=== PATIENT | male | born 1990 | race Caucasian/White ===

== ENCOUNTER 2017-02-17 09:34 | Inpatient (IN) | payer OTHER ==
[~2017-02-17] VITALS: Ht 160 cm; Wt 59.9 kg
--- NOTE | 2017-02-17 09:54 | NUR ---
TONI FROM [facility] IN [place], VERY ANXIOUS, SOBBING. + SI, NO SPECIFIC PLAN, STATES HIS GRANDMOTHER PAID FOR HIM TO TO LIVE AT THE [facility] IN [place] WHICH WAS ARRANGED BY [facility] (CALVIN ORELLANA COUNSELOR). STATES "I FELT SCARED THAT I WOULDNT HAVE ANY MONEY TO EAT". STATES HE HASNT EATEN IN 4 DAYS. REPORTS HE TRIED TO "STRANGLE" SELF IN THE PAST WITH HIS HANDS. DENIES HI OR DRUG USE, ON UNKNOWN MEDICATION FOR DEPRESSION.
--- NOTE | 2017-02-17 09:58 | ED PSYCHIATRIC COMPLAINT ---
History of Present Illness General Chief Complaint: Psychiatric Related Complaint Stated Complaint: BIBA +SI Source: patient, old records, EMS Exam Limitations: no limitations Vital Signs & Intake/Output Vital Signs & Intake/Output Vital Signs Date Time Temp Pulse Resp B/P B/P Pulse O2 O2 Flow FiO2 Mean Ox Delivery Rate 02/18 1009 97.0 76 18 112/68 99 Room Air 02/18 0803 97.2 70 18 109/65 98 Room Air 02/18 0601 96.8 66 18 128/56 98 Room Air 02/17 2235 96.7 66 18 110/59 97 02/17 2033 97.2 64 16 120/62 97 Room Air 02/17 1502 96.5 78 18 111/57 98 Room Air 02/17 1236 96.6 65 18 113/56 99 Room Air ED Intake and Output 02/18 0000 02/17 1200 Intake Total Output Total Balance Patient 145 lb Weight Weight Reported by Patient Measurement Method Allergies Coded Allergies: No Known Drug Allergies (Intermediate, NONE 02/17/17) Reconcile Medications Risperidone 1 MG TABLET 2 TAB PO QPM MENTAL HEALTH (Reported) Triage Note: TONI FROM [facility], VERY ANXIOUS, SOBBING. + SI, NO SPECIFIC PLAN, STATES HIS GRANDMOTHER PAIN FOR HIM TO GET A ROOM AT THE [facility] IN [place], ARRANGED BY [facility] (CALVIN ORELLANA COUNSELOR). STATES "I FELT SCARED THAT I WOULDNT HAVE ANY MONEY TO EAT". STATES HE HASNT EATEN IN 4 DAYS. REPORTS HE TRIED TO "STRANGLE" SELF IN THE PAST WITH HIS HANDS. DENIES HI OR DRUG USE. ON UNKNOWN MEDICATION. Triage Nurses Notes Reviewed? yes Onset: Gradual Duration: week(s):, constant Timing: recent history Severity: moderate, severe Severity Numbers: 10 Associated Symptoms: anxiety, suicidal ideation HPI: 26-year-old male presents to ER for evaluation brought in by ambulance complaining of progressively worsening anxiety and suicidal ideation. The patient states that he has been living with his aunt in [place] whom he does not get along with which is adding increased stress he reports a racing thoughts and difficulty sleeping he is supposed to move into the [facility] on Tuesday. He states that he's been having progressively more frequent thoughts of wanting to harm himself by choking himself. He smokes marijuana and tobacco he denies tobacco or other drug use. No modifying factors or associated symptoms otherwise he is been compliant with taking his Risperdal, he is followed by [facility] (ROSEMARIE CORMIER) Past History Travel History Traveled to [place] past 21 day No Medical History Any Pertinent Medical History? see below for history Psychiatric: bipolar disease Surgical History Surgical History: non-contributory Psychosocial History What is your primary language Maltese Tobacco Use: Current Daily Use Daily Tobacco Use Amount/Type: => 5 Cigarettes daily ETOH Use: denies use Family History Hx Contributory? No (ROSEMARIE CORMIER) Review of Systems Review of Systems Constitutional: Reports: see HPI. Comments Review of systems: See HPI, All other systems negative. 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 moist mucous membranes. Neck: Supple, normal range of motion Back: Nontender, no CVA tenderness. Full range of motion Cardiovascular: Regular rate and rhythms no murmurs rubs Respiratory: No respiratory distress. Patient speaking in full complete sentences. Breath sounds clear to auscultation bilaterally: NO W/R/R Abdomen: Soft, nontender nondistended Extremity: No edema, full range of motion of extremities, Neuro: Alert oriented x3, motor sensory normal There were no obvious focal neurologic abnormalities. Skin: No appreciable rash on exposed skin, skin is warm and dry. Psych: Tearful depressed anxious, memory and judgment is normal. SAD PERSONS SAD PERSONS Response Value Male Sex? yes 1 Depression/Hopelessness? yes 2 Previous Attempts/Psych Care yes 1 Rational Thinking Loss? yes 2 Single//? yes 1 Organized/Serious Attempt yes 2 Social Support? has no support 1 Stated Future Intent? yes 2 Total 12 SAD PERSONS Done? yes (ROSEMARIE CORMIER) Progress Differential Diagnosis: drug intoxication, drug overdose, drug withdrawal, electrolyte abnormality, DEPRESSION, BIPOLAR, ANXIETY Plan of Care: Orders Procedure Date/time Status Regular Diet 02/18 D Active Patient Data - inpatient psych 02/18 1129 Active Admit to inpatient psych 02/18 1129 Active Vital Signs 02/18 UNK Active Nursing Misc 02/18 UNK Active Alternative Nursing Therapy 02/18 UNK Active Activity/Ambulation 02/18 UNK Active Current Medications Sig/Rosey Start time Last Medication Dose Stop Time Status Admin Risperidone 0.5 MG BID 02/17 1508 UNVr 02/18 (Risperidone) 1026 LABS ORDERED, PT RESTING IN NAD AT [facility], CRISIS CONSULT ORDERED Case d/w sr solutions consultant herman pt will be ER hold for bedsearch (ROSEMARIE CORMIER) Hand-Off Endorsed To: AQUILES SPRAGUE MD Endorsed Time: 1800 Pending: consult (CRISIS BED PLACEMENT) (ROSEMARIE CORMIER) Comments: 02/17/2017 6:30:57 PM patient signed out to me by PA. Awaiting crisis evaluation. (AQUILES SPRAGUE MD) Hand-Off Endorsed To: AQUILES MCFARLAND DO Endorsed Time: 0700 Pending: other (bed search) (MAXIMO BLAIR MD) Departure Departure Disposition: STILL A PATIENT Condition: Stable Departure Forms: Customer Survey General Discharge Information (ROSEMARIE CORMIER) Departure Clinical Impression Primary Impression: Depression with suicidal ideation Secondary Impressions: Anxiety, Marijuana use (MAXIMO BLAIR MD) Departure Comments 02/18/17 11:50 PM The patient was signed out to me by Dr. Blair. He is currently on a bed search by crisis (AQUILES MCFARLAND DO) Secondary Impressions: Anxiety, Marijuana use (MAXIMO BLAIR MD)
--- NOTE | 2017-02-17 10:24 | ED PSY CRISIS COLLATERAL NOTE ---
Collateral Note Collateral Note Family/Inform/Catherine Contacts: care: Pt requested to go to the hospital voluntarily as he feels unsafe. Pt started tx with [facility] October 2016. Per Silvana and Summer, pt initially reported homelessness but dad confirmed he actually lives with an aunt in [place]. Pt presents as angry, labile mood, crying and "praying a lot" which is not his baseline. Per care , dad feels his medications are not right. Silvana reports hx of taking risperdal and will fax over medication list.
[2017-02-17 10:36] LABS: ABSOLUTE BASOPHIL COUNT 0 /CUMM (0.0-0.2); ABSOLUTE EOSINOPHIL COUNT 0 /CUMM (0.0-0.7); ABSOLUTE GRANULOCYTE CT 4.5 /CUMM (1.4-6.5); ABSOLUTE MONOCYTE COUNT 0.4 /CUMM (0.10-0.60); BASOPHIL % 0.5 % (0.0-2.0); EOSINOPHIL % 0.8 % (0-5); GRANULOCYTE % 75.4 % (42.2-75.2); HEMATOCRIT 45.9 % (42-52); MEAN CORPUSCULAR HGB 30.3 PG (27.0-31.0); MEAN CORPUSCULAR HGB CONC 34.6 G/DL (33.0-37.0); MEAN CORPUSCULAR VOLUME 87.5 FL (80.0-94.0); MEAN PLATELET VOLUME 9.2 FL (7.4-10.4); PLATELET COUNT 196 /CUMM (130-400); RBC DISTRIBUTION WIDTH 12.6 % (11.5-14.5); RED BLOOD CELL CT 5.25 /CUMM (4.70-6.10)
[2017-02-17] MEDS ORDERED: RISPERIDONE1 M1 PO (10:39)
--- NOTE | 2017-02-17 11:03 | NUR ---
(1) one belongings bag locked in closet and (1) one valuables bag given to Pod 2 RN
--- NOTE | 2017-02-17 11:10 | NUR ---
LUNCH TRAY ORDERED FOR PT
--- NOTE | 2017-02-17 11:34 | NUR ---
PT RESTING ON STRETCHER, TEARFUL, FAMILY AT BEDSIDE. PITCHER OF WATER PROVIDED. SITTER IN PLACE.
--- NOTE | 2017-02-17 14:03 | NUR ---
Crisis evaluation completed.
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
--- NOTE | 2017-02-17 15:59 | NUR ---
PT MEDICATED WITH RISPERIDONE PER EMAR. OFFERING NO COMPLAINTS OR NEEDS. SITTER AT DOORWAY.
--- NOTE | 2017-02-17 18:34 | NUR ---
Faxed referral to Jessica Montero.
--- NOTE | 2017-02-17 18:37 | NUR ---
CRISIS AT BEDSIDE TO DISCUSS POC WITH FAMILY. SITTER AT DOORWAY.
--- NOTE | 2017-02-17 18:43 | ED PSY CRISIS COLLATERAL NOTE ---
Collateral Note Collateral Note Family/Inform/Catherine Contacts: Phone contact with Heidy Keyes aunt , pt lived with the aunt in [place] until a couple of weeks ago. Heidy reporrts he stopped taking his medications last month, January because [facility] added Tenex. Pt said to her that the medicatiions were not working for him. She also said he smokes marijuana often like he's smoking cigarettes, almost every 20 minutes. She reports he has a learning disability and only has a 7th grade education. Recently, she finds his behaviors to be more aggressive, angry and irritable. She states pt was seen by a Neurologist and was diagnosed with a TBI. His father fought with SSI to get him benefit because of his disability (TBI). She said the pt never made an attempt. But she finds that he often says things to get people's attention.
--- NOTE | 2017-02-17 20:29 | NUR ---
THIS RN TO PT'S ROOM TO MEDICATE PT WITH RISPERIDONE PER EMAR. THIS RN APPROACHES ROOM PT'S FATHER STATES "NO, I DO NOT WANT HIM RECEIVING ANY MEDICATION. I SPOKE WITH LUCY FROM CRISIS AND TOLD HER HE WAS NEVER DIAGNOSED WITH ANYTHING AND I DO NOT WANT HIM GETTING THESE MEDICATIONS." PT THEN STATES THAT HE WANTS TO REFUSE MEDICATION.
--- NOTE | 2017-02-18 00:22 | NUR ---
PT NOTED TO BE SLEEPING ON BED. NORMAL RR NOTED. SITTER IN PLACE. WILL CONTINUE TO MONITOR.
--- NOTE | 2017-02-18 04:24 | NUR ---
PT CONTINUES TO SLEEP ON STRETCHER. SNORING NOTED. SITTER IN PLACE. WILL CONTINUE TO MONITOR.
--- NOTE | 2017-02-18 05:56 | NUR ---
PT AWAKE ON BED. PT DENIES ANY COMPLAINTS. SITTERS REMAIN IN PLACE.
--- NOTE | 2017-02-18 07:08 | NUR ---
REPORT GIVEN TO CARIN CONNELLY.
--- NOTE | 2017-02-18 07:27 | NUR ---
ASSUMED CARE OF PT, UPON ASSESSMENT PT CRYING AND TEARFUL STATING "I MISS MY DAD" PT REQUESTING TO USE PHONE TO CALL FATHER, SITTER AT PT'S SIDE, PT ALLOWED TO USE PHONE TO CALL FATHER.
--- NOTE | 2017-02-18 10:12 | NUR ---
PHARMACY CALLED FOR MEDS, GRANDMOTHER VISITED PATIENT AND SPENT TIME PRAYING WITH HIM, PT REPORTING HE IS FEELING MUCH MORE CALM NOW AFTER FAMILY VISIT.
--- NOTE | 2017-02-18 10:26 | NUR ---
PT CALM AND COOPERATIVE, SITTING IN CHAIR JUST OUTSIDE ROOM, SITTERS SUPERVISING, PT REFUSING RISPERIDONE STATING "IM JUST NOT INTO TAKING MEDS UNTIL THEY FIGURE OUT WHATS GOING ON" PROVIDED WITH S[place]INES PER PT REQUEST.
--- NOTE | 2017-02-18 10:41 | NUR ---
PT NOW STATING HE WILL TAKE RISPERIDONE, MEDICATED PER EMAR, PT TO BE ADMITTED TO [facility] THIS AFTERNOON.
--- NOTE | 2017-02-18 11:20 | NUR ---
ASSUEMD CARE OF THIS PT FROM CARIN CONNELLY. PT ASLEEP AT THIS TIME. RESPIRATIONS EQUAL AND UNLABORED. SITTER AT DOOR. PT TO BE ADMITTED TO [facility].
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
[2017-02-18] MEDS ORDERED: RISPERIDONE1 M1 (12:08)
[2017-02-18] MEDS ORDERED: GUANFACINE HCL E1 MG (12:10)
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
--- NOTE | 2017-02-18 13:15 | NUR ---
PT CALM AND COOPERATIVE SITTING ON CHAIR IN DOORWAY TO ROOM 15. SITTER AT DOOR.
--- NOTE | 2017-02-18 14:05 | NUR ---
VSS. PT CALM AND COOPERATIVE. PT READY TO TRANSFER TO CPS.
[2017-02-18 15:45] VITALS: BP 120/62
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
--- NOTE | 2017-02-18 18:55 | NUR ---
PT HAS BEEN COMPLIANT WITH STAFF AND UNIT RULES SINCE HE ARRIVED TO [facility]. PT HAS HAD VISITORS LATER IN THE EVENING AND HAS BEEN PLEASANT. THERE HAVE BEEN NO REPORTS OF DISTRESS. PT HAS DENIED ANY THOUGHTS OF SI AT THIS TIME.
[2017-02-18 19:59] VITALS: BP 131/66
--- NOTE | 2017-02-18 23:12 | History & Physical ---
General Information and HPI History of Present Illness: Patient is a 26-year-old gentleman with history of depression. He was admitted to the inpatient psychiatric unit due to decompensation of his depression. He offers no medical complaints at this time. 12 point review of systems was noncontributory. 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 Home ETOH Use: denies use Employment History Employment Disability Profession/Employer [employer] Review of Systems Review of Systems Constitutional: Reports: see HPI. Exam & Diagnostic Data Last 24 Hrs of Vital Signs/I&O Vital Signs Date Time Temp Pulse Resp B/P B/P Pulse O2 O2 Flow FiO2 Mean Ox Delivery Rate 02/18 1959 97.0 56 131/66 02/18 1545 97.1 67 120/62 02/18 1408 98.5 68 16 107/59 95 Room Air 02/18 1201 96.9 74 18 109/55 97 Room Air 02/18 1009 97.0 76 18 112/68 99 Room Air 02/18 0803 97.2 70 18 109/65 98 Room Air 02/18 0601 96.8 66 18 128/56 98 Room Air Intake & Output 02/18 1600 02/18 0800 02/18 0000 Intake Total Output Total Balance Patient 59.874 kg Weight Physical Exam General Appearance Alert, Oriented X3, Cooperative, No Acute Distress Skin No Rashes, No Breakdown HEENT Atraumatic, PERRLA, EOMI, Mucous Membr. moist/pink Neck Supple Cardiovascular Regular Rate, Normal S1, Normal S2, No Murmurs Lungs Clear to Auscultation, Normal Air Movement Abdomen Normal Bowel Sounds, Soft, No Tenderness, No Hepatospenomegaly Neurological Exam Findings: Normal Gait, Strength at 5/5 X4 Ext Cranial Nerves II through XII: WNL Extremities No Clubbing, No Cyanosis, No Edema, Normal Pulses Assessment/Plan Assessment: Patient currently has no acute medical issues. Management of his depression will be directed by the psychiatric service. As Ranked By This Provider Problem List: 1. Depression with suicidal ideation Miscellaneous Miscellaneous Documentation Attending Case Discussed With: ADRIÁN RODRIGUES MD Primary Care Physician: PATIENT HAS NO PRIMARY CARE DR Patient sees these Specialists None Level of Patient Care: MONI Hernandez
--- NOTE | 2017-02-19 05:19 | NUR ---
PATIENT APPEARED TO SLEEP MOST OF THE NIGHT; HE WAS GIVEN PRN NEURONTIN AT 0359 DUE TO ANXIETY AND NOT BEING ABLE TO GET BACK TO SLEEP; HE APPEARED TO SLEEP AFTERWARDS.
[2017-02-19 07:53] VITALS: BP 106/44
--- NOTE | 2017-02-19 12:05 | CP SOUTH PROGRESS NOTE PSYCH ---
Psych (Inpt) Progress Note Progress Note Include the following elements, when applicable: Involvement in the active treatment of the patient with behavioral observations of the patient and the patient's response to the treatment. Review of the ongoing treatment process in the context of the treatment plan. Indication of how multi-disciplinary staff members are carrying out the treatment plan. Plans for future interventions and recommendations for revision of the treatment plan. Liaison with other physicians/providers. Progress Note: Pt notes that things are going well. He feels that he did not sleep well last night. Denies SI or HI. Feels that he was overwhelmed by life and medications taking before not helpful. Wanted this provider to update father. Denies AVHs Current Medications Sig/Rosey Start time Last Medication Dose Route Stop Time Status Admin Acetaminophen 650 MG Q6P PRN 02/18 1145 AC PO Al Hydroxide/Mg 30 ML Q4-6 PRN PRN 02/18 1145 AC Hydroxide PO Divalproex Sodium 250 MG 0800 02/19 0800 AC 02/19 PO 0758 Divalproex Sodium 500 MG DAILY@02/18 2000 AC 02/18 PO 1936 Gabapentin 300 MG Q6P PRN 02/18 1145 AC 02/19 PO 0359 Magnesium Hydroxide 30 ML AT BEDTIME NEED.. 02/18 1145 AC PO Risperidone 0.5 MG BID 02/17 1508 DC 02/18 PO 1026 Trazodone HCl 75 MG AT BEDTIME 02/19 2200 AC PO Trazodone HCl 50 MG AT BEDTIME NEED.. 02/19 1200 AC PO Trazodone HCl 50 MG AT BEDTIME NEED.. 02/18 1145 DC PO Laboratory Tests 02/17 02/17 1025 1025 Chemistry Sodium (137 - 145 mmol/L) 142 Potassium (3.5 - 5.1 mmol/L) 3.8 Chloride (98 - 107 mmol/L) 103 Carbon Dioxide (22 - 30 mmol/L) 24 Anion Gap (5 - 16) 14 BUN (9 - 20 mg/dL) 14 Creatinine (0.7 - 1.2 mg/dL) 1.0 Estimated GFR (>60 ml/min) > 60 BUN/Creatinine Ratio (7 - 25 %) 14.0 Glucose (65 - 99 mg/dL) 78 Calcium (8.4 - 10.2 mg/dL) 9.6 Total Bilirubin (0.2 - 1.3 mg/dL) 2.0 H AST (17 - 59 U/L) 20 ALT (21 - 72 U/L) 37 Alkaline Phosphatase (< 127 U/L) 60 Total Protein (6.3 - 8.2 g/dL) 7.1 Albumin (3.5 - 5.0 g/dL) 4.8 Globulin (1.9 - 4.2 gm/dL) 2.3 Albumin/Globulin Ratio (1.1 - 2.2 %) 2.1 Triglycerides (<150 mg/dL) 41 Cholesterol (< 200 MG/DL) 147 LDL Cholesterol, Calc (65 - 129 mg/dL) 78 HDL Cholesterol (40 - 60 mg/dL) 61 H Cholesterol/HDL Ratio (0.00 - 4.88 %) 2 Amylase (30 - 110 U/L) 37 TSH &T3 &Free T4 Intrp (0.27 - 4.20 uIU/mL) 0.745 Hematology CBC w Diff NO MAN DIFF REQ WBC (4.8 - 10.8 /CUMM) 6.0 RBC (4.70 - 6.10 /CUMM) 5.25 Hgb (14.0 - 18.0 G/DL) 15.9 Hct (42 - 52 %) 45.9 MCV (80.0 - 94.0 FL) 87.5 MCH (27.0 - 31.0 PG) 30.3 RDW (11.5 - 14.5 %) 12.6 Plt Count (130 - 400 /CUMM) 196 MPV (7.4 - 10.4 FL) 9.2 Gran % (42.2 - 75.2 %) 75.4 H Lymphocytes % (20.5 - 51.1 %) 15.9 L Monocytes % (1.7 - 9.3 %) 7.4 Eosinophils % (0 - 5 %) 0.8 Basophils % (0.0 - 2.0 %) 0.5 Absolute Granulocytes (1.4 - 6.5 /CUMM) 4.5 Absolute Lymphocytes (1.2 - 3.4 /CUMM) 1.0 L Absolute Monocytes (0.10 - 0.60 /CUMM) 0.4 Absolute Eosinophils (0.0 - 0.7 /CUMM) 0 Absolute Basophils (0.0 - 0.2 /CUMM) 0 PUBS MCHC (33.0 - 37.0 G/DL) 34.6 Toxicology Urine Opiates Screen (>2000 NG/ML) < 100.00 Methadone Screen (>300 NG/ML) < 40 Barbiturate Screen (>200 NG/ML) < 60 Ur Phencyclidine Scrn (>25 NG/ML) < 6.00 Amphetamines Screen (>1000 NG/ML) 152 U Benzodiazepines Scrn (>200 NG/ML) < 85 Urine Cocaine Screen (>300 NG/ML) < 50 Urine Cannabis Screen (>50 NG/ML) 78.10 H Serum Alcohol (<10 MG/DL) < 10.0 Vital Signs Date Time Temp Pulse Resp B/P B/P Pulse O2 O2 Flow FiO2 Mean Ox Delivery Rate 02/19 0753 96.3 54 106/44 02/18 1959 97.0 56 131/66 02/18 1545 97.1 67 120/62 02/18 1408 98.5 68 16 107/59 95 Room Air MSE Appears as stated age. Cooperative behavior, good, appropriate eye contact. Nl speech rate and prosody. No psychomotor retardation or agitation. Mood fine Affect irritable, depressed, constricted, appropriate, non-liable. Linear and goal directed thought process. Denies SI or HI. Does not appear to be responding to internal stimuli. Denies AVHs, paranoia, or delusions. I/J: limited A/P: Pt with MDD and anxiety with SI in the setting of mulitple psychosocial stressors. - Start trazadone 75mg qhs + 50mg PRN - Continue medication regimen otherwise - Father has arranged housing for patient - Family meeting needed next week. - Need more collateral from prior treaters
[2017-02-19 12:45] VITALS: BP 111/74
--- NOTE | 2017-02-19 14:49 | NUR ---
PT IS COMPLIANT AND COOPERATIVE. MOOD IS STABLE WITH A FULL RANGE OF AFFECT. PT DENIES SI AT THIS TIME, NO COMPLAINTS OFFERED. PT IS PRESENT ON THE UNIT AND INTERACTING WELL WITH PEERS AND STAFF. PT IS ATTENDED GROUPS. VITALS ARE STABLE, APPETITE IS GOOD.
[2017-02-19 15:59] VITALS: BP 106/53
--- NOTE | 2017-02-19 16:36 | NUR ---
Patient is A&O X 3, compliant with medication and group therapies/activities. Patient is present in the community interacts with other peers and staff member. Patient C/O of fungal infection of hands and feets to the psychiatrist who ordered the patient to be seen by the HOD. HOD declined to see the patient at this time on the ground of nonemergency. Patient equally requested some medication of GI distress, Maalox 30 ml oral was given. Mood and affect are stable and appropriate, vital sign is stable, and patient denies any AH/VH, thought of self-harm and to someone else.
--- NOTE | 2017-02-19 17:35 | NUR ---
PT IS CALM, COOPERATIVE WITH STAFF AND PEERS, AND COMPLIANT WITH UNIT RULES. OFTEN IN [place]IE[place], INTERACTING WELL WITH OTHERS. MOOD IS STABLE, AFFECT APPEARS EUTHYMIC TO FULL RANGE, COMMUNICATION IS ORGANIZED IN ALL RESPECTS, AND APPETITE IS NORMAL. PT DENIES SI AT THIS TIME.
[2017-02-19 19:53] VITALS: BP 143/72
--- NOTE | 2017-02-19 21:35 | NUR ---
PATIENT'S HAND AND FEET EXAMINED; NO EVIDENCE OF ACUTE FUNGAL INFECTION SEEN; POSSIBLE CHRONIC FUNGAL ISSUES OF FINGER AND TOENAILS; PT ADVISED THAT THIS WOULD MOST LIKELY BE ADDRESSED BY HIS PCP AT HOME; SKIN INTACT, NO REDNESS, SWELLING, ITCHING, NOTED; SKIN ON FEET NOTED TO BE DRY AND SLIGHTLY CRACKED; VITAL SIGNS WNL; PT MEDICALLY STABLE AT THIS TIME.
--- NOTE | 2017-02-20 06:52 | NUR ---
PATIENT WAS AWAKE AT 0250, GIVEN PRN TRAZODONE AND NEURONTIN WITH MILD EFFECT; HE WAS AGAIN AWAKE EARLY AT 0530; PT STATED "I MISS MY FAMILY" IN MIDDLE OF NIGHT, APPEARED TEARFUL, ANXIOUS.
[2017-02-20 07:35] VITALS: BP 113/67
--- NOTE | 2017-02-20 11:46 | CP SOUTH PROGRESS NOTE PSYCH ---
Psych (Inpt) Progress Note Progress Note Include the following elements, when applicable: Involvement in the active treatment of the patient with behavioral observations of the patient and the patient's response to the treatment. Review of the ongoing treatment process in the context of the treatment plan. Indication of how multi-disciplinary staff members are carrying out the treatment plan. Plans for future interventions and recommendations for revision of the treatment plan. Liaison with other physicians/providers. Progress Note: Pt feels that he is "more clear, more open and more alert" on current meds than before. He notes family visited one day ago. Father and step mother to visit today. He feels they are his primary supports. Denies SI or HI. Current Medications Sig/Rosey Start time Last Medication Dose Route Stop Time Status Admin Acetaminophen 650 MG Q6P PRN 02/18 1145 AC PO Al Hydroxide/Mg 30 ML Q4-6 PRN PRN 02/18 1145 AC 02/19 Hydroxide PO 1434 Divalproex Sodium 250 MG 0800 02/19 0800 AC 02/20 PO 0732 Divalproex Sodium 500 MG DAILY@02/18 2000 AC 02/19 PO 2002 Gabapentin 300 MG Q6P PRN 02/18 1145 AC 02/20 PO 0251 Magnesium Hydroxide 30 ML AT BEDTIME NEED.. 02/18 1145 AC PO Trazodone HCl 75 MG AT BEDTIME 02/19 2200 AC 02/19 PO 2120 Trazodone HCl 50 MG AT BEDTIME NEED.. 02/19 1200 AC 02/20 PO 0251 Vital Signs Date Time Temp Pulse Resp B/P B/P Pulse O2 O2 Flow FiO2 Mean Ox Delivery Rate 02/20 0735 90.1 62 113/67 02/19 1953 97.6 61 143/72 02/19 1559 61 106/53 02/19 1245 70 111/74 MSE Appears as stated age. Cooperative behavior, good, appropriate eye contact. Nl speech rate and prosody. No psychomotor retardation or agitation. Mood "open and clear" Affect slightly elevated, constricted, appropriate, non-liable. Linear and goal directed thought process. Denies SI or HI. Does not appear to be responding to internal stimuli. Denies AVHs, paranoia, or delusions. I/J: limited A/P: Pt with MDD and anxiety with SI in the setting of mulitple psychosocial stressors. - Continue trazadone 75mg qhs + 50mg PRN - Continue medication regimen otherwise - Family meeting needed - Need more collateral from prior treaters as ?personality organization leading to interpersonal difficulties
[2017-02-20 12:06] VITALS: BP 109/65
--- NOTE | 2017-02-20 12:20 | NUR ---
Patient is A&O X 3, compliant with medication and group therapies/ activities. Patient is present in the community, interacts with other peers and staff members, Mood and affects are stable and appropriate, wishes that his family members should stop trooping to the hospital to visit him because it is too emotional for him.Patient report fair night sleep and good appetite, denies thought of self-harm and to someone else.
[2017-02-20 16:14] VITALS: BP 130/68
--- NOTE | 2017-02-20 17:48 | NUR ---
PT IS CALM, COOPERATIVE WITH STAFF AND PEERS, AND COMPLIANT WITH UNIT RULES. OFTEN IN MILIEU, INTERACTING WELL WITH OTHERS. MOOD IS STABLE, AFFECT APPEARS FULL RANGE, COMMUNICATION IS ORGANIZED AND APPEARS NORMAL IN ALL RESPECTS, AND APPETITE IS NORMAL. PT DENIES SI AT THIS TIME.
[2017-02-20 19:58] VITALS: BP 147/66
[2017-02-20 20:07] VITALS: BP 147/66
[2017-02-21 08:04] VITALS: BP 121/72
[2017-02-21 12:20] VITALS: BP 111/68
--- NOTE | 2017-02-21 12:23 | NUR ---
PT IS A/OX3; AFFECT IS FULL RANGE; PT IS OUT IN COMMUNITY INTERACTING WITH STAFF AND PEERS APPROPRIATELY; PT DENIES SI/HI/TUBBS AT THIS TIME; PT ATTENDING GROUPS; PT IS COMPLIANT WITH MEDICATIONS; PT IS GOAL AND FUTURE ORIENTED.
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
[2017-02-21 16:22] VITALS: BP 138/59
--- NOTE | 2017-02-21 16:44 | SOCIAL WORKER TX PLAN PSYCH ---
Treatment Plan - Please Document: - Evidence that there is ongoing collaboration between - the patient and the interdisciplinary team, - including the patient's active participation and - responsibility for engaging in the treatment regimen, - and that the treatment plan is individualized and - relevant to the patient's conditions. - Treatment plan should reflect documentation indicating - that all active therapeutic efforts are included. Strengths/Capabilities: Pt has the support of his father, maternal grandmother and aunt. Pt is enrolled in IOP treatment at [facility] Physical Limitations (Interventions): None reported Patient Identified Trmt Goals: "I needed help with my mood" Discharge Plan: [facility] Problem/Goals #1 Problem #1: depression Goal (Short Term): patient will explore medication changes to help stabilize mood Goal (Leather Softener): patient will be able to verbalize progress with mood stabilization Interventions: patient will be offered medication management, groups on symptom management, coping skills, goals group, focus group, relaxation, art therapy. Epic Cupid Analyst will explore strengths to help maintain stability. Epic Cupid Analyst will hold family meeting and plan aftercare. Modalities: group/ individual Problem/Goals #2 Problem #2: cannabis use Goal (Short Term): patient will identify the pros and cons to use Goal (Leather Softener): patient will identify ways to avoid relapse Interventions: patient will be offered groups on relapse prevention, AA meetings, coping skills. Epic Cupid Analyst will discuss pros and cons to use. Epic Cupid Analyst will assist with aftercare planning DSM5/PS Stressors/Medical Prob Diagnosis' (DSM 5, Stressors, Medical): F32.9 Depressive Disorder Unspecified, F43.23 Adjustment Disorder Mixed w/ Anxiety and Depressed Mood, F43.9 Unspecified Trauma and Stressor Related Disorder (Hx of TBI), F12.20 Cannabis Use Disorder Severe F79 Unspecified Intellectual Disability Z65.3 Problems Related to Other Legal Circumstances Z65.8 Other Problem Related to Psychosocial Circumstances Current GAF: 20 Treatment Team - Responsibilities of members of the treatment team include: - Medication Management- MD or CNC MACHINE OPERATOR - Medication Administration and Monitoring- Nurse - Group Therapy- Occupational Therapist - 1:1 Therapy,Disch Planning,family involvement-Epic Cupid Analyst
--- NOTE | 2017-02-21 17:40 | NUR ---
PT IS CALM, COOPERATIVE WITH STAFF AND PEERS, AND COMPLIANT WITH UNIT RULES. PT IS OFTEN IN MILIEU, INTERACTING WELL WITH OTHERS. MOOD IS STABLE, AFFECT APPEARS EUTHYMIC TO FULL RANGE, COMMUNICATION IS ORGANIZED AND APPEARS NORMAL IN ALL RESPECTS, AND APPETITE IS NORMAL. PT DENIES SI AT THIS TIME.
[2017-02-21 19:50] VITALS: BP 132/84
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
[2017-02-22 07:39] VITALS: BP 105/57
--- NOTE | 2017-02-22 11:02 | SOCIAL WORKER PROG NOTE PSYCH ---
Social Work Progress Note Progress Note Member Name Member ID Member Subscriber Name Subscriber ID JOHNNA ZHAO III [id number] 1990 JOHNNA DAILEYEMMIE PAULINO [id number] Pended Authorization # Client Authorization # Type of Request [id number] CONCURRENT Date of Admission/ Start of Services Requested From Submission Date 02/18/2017 02/22/2017 02/22/2017
--- NOTE | 2017-02-22 11:27 | NUR ---
PATIENT CALM AND COOPERATIVE WITH STAFF AND UNIT RULES. STABLE MOOD WITH BRIGHT AFFECT. COMMUNICATES WELL WITH STAFF AND PEERS, PRESENT IN MILEU. INTERACTIVE IN GROUPS. NORMAL APETITE. DENIES SI.
[2017-02-22 12:25] VITALS: BP 116/69
[2017-02-22 15:51] VITALS: BP 120/55
--- NOTE | 2017-02-22 15:52 | SOCIAL WORKER PROG NOTE PSYCH ---
Social Work Progress Note Progress Note Mike reports having a good day. He complimented the staff here and said he likes it here and that people like him because he's helpful and polite. He didn 't want to make any decisions about his discharge plan until speaking with his Father in the family meeting. today. He did sign a release for Care. Family meeting held with Mike's Father, Father's girlfriend Savannah, Dr. Alford, Holli Branham [facility] and Mike. Mike's Father's main focus at the meeting was on determining if Mike has a TBI. Dad reported he has had learning disabilities and had been in special Ed in school. Dad got frustrated when the team wouldn't validate these diagnoses and told him he really should seek professionals in that area such as a neurologist. Dad dominated the meeting with his concerns, which really weren't directly related to why Mike came in. Mike tried to redirect the conversation himself to discuss aftercare planning. All agreed that he can come to [facility] and still remain with Care for case management. Mike's concern is related meeting court requirements. Dad reported that the room at the [facility] is being held and he can come in on 03/08. In the meantime he will stay at various family members houses. Dad advocated for discharge on Tuesday. Mike looked concerned about Tuesday as a discharge date, but when I questioned him and asked what he thought? He said it was fine. Body language indicated otherwise. After the meeting Mike wouldn't speak much to Dad and Dad looked frustrated and left.
--- NOTE | 2017-02-22 17:09 | SOCIAL WORKER PROG NOTE PSYCH ---
Social Work Progress Note Progress Note 02/22/17 Patient sought out social work after family meeting expressing his feelings of being "hurt". Patient wishes that discharge would happen prior to Tuesday. Patient expressed that he is Amish and he is upset about how the meeting went in terms of his father yelling and that it was "ugly and Christians do not like ugly". Emotional support provided to patient who seemed slightly receptive but still very"upset". Patient in the end was encouraged to explore things that he could work on while he is here and continue going to groups.
--- NOTE | 2017-02-22 17:37 | SOCIAL WORKER PROG NOTE PSYCH ---
Social Work Progress Note Progress Note Talked to Mr. Mcrae who called after the family meeting. He was upset over how the meeting went today and upset about Mike feeling upset over staying 1 more day. Talked about his concerns related to Mike's learning disabilities and TBI. Let him know that we are focusing on Mike's depression and SI during his tx stay and that the other concerns can be addressed outpatient. He was okay with my response after I repeated it a couple of times.
--- NOTE | 2017-02-22 18:08 | CP SOUTH PROGRESS NOTE PSYCH ---
Psych (Inpt) Progress Note Progress Note Include the following elements, when applicable: Involvement in the active treatment of the patient with behavioral observations of the patient and the patient's response to the treatment. Review of the ongoing treatment process in the context of the treatment plan. Indication of how multi-disciplinary staff members are carrying out the treatment plan. Plans for future interventions and recommendations for revision of the treatment plan. Liaison with other physicians/providers. Progress Note: PSYCHIATRIST NOTE (FAMILY MEETING), 02/22/2017: I discussed this patient's interval progress to date, current mental status , treatment and discharge planning with staff team today in the daily morning ITTM; Lynne Conroy LCSW, and I met with patient and both his parents today in a family meeting. Almost from the outset father was perseverative on his son's "disability," which he could not delineate in much detail but is part of his "TBI" and "learning disabilities" in school; I was surprized that father was much more interested in this topic than the reasons his son is here with us now, his mood disorder and substance abuse and wasn't interested in looking into any way(s) either much "also" be negatively affecting his son's behavior and life course, even standing "I've known people using Marijuana for 40 years and it hasn't done them any harm..." Father also shared that he is himself 20- something years into recovery from "heroin and cocaine." I did validate father' s concerns but suggested that the question of some residual "TBI" from childhood head trauma would be better discussed with someone more expert in that area such as a neurologist; at that parents noted that they had taken patient to "see a neurologist in [place]" a few years ago "but nothing came of it." I suggested that if they still felt "TBI" was central to their son's difficulties that they get back in touch with neurologist or get a second opinion from another specialist. In the end, we were able to discuss patient's progress in hospital, response to medications and psychiatric aftercare planning. Parents were supportive of their son attending the [facility], his continuing connection to [facility] (for case management services, individual therapy, etc.) and agreed with us that involvement in N.A./A.A. would be beneficial to patient. Repeat valproic acid level this morning was only 40.9mcg/ml on current dose of 750mg/ day; I have increased dose by 33%, effective tonight and will repeat level prior to discharge later this week. Up until today's family meeting, patient had been reporting improvement in mood and encouraged by this; however, father's loud and harsh language and repeated referrals to patient's "disability" were frustrating for him, and it became increasingly clear that father's aggressive, controlling behavior was distressing to him. It is well that the current plan is for patient to go to stay at the [facility] by 03/08/2017; living with father at this time would not likely be beneficial to his mood or recovery.
[2017-02-22 19:44] VITALS: BP 128/65
--- NOTE | 2017-02-22 21:56 | NUR ---
PT IS VISIBLE ON UNIT, VISITING WITH PARENTS IN THE KITCHEN. VERY SOCIAL WITH PEERS. COOPERATIVE AND COMPLIANT WITH STAFF. ATTENDED WRAP UP MEETING. NO COMPLAINTS OR SI REPORTED. PT HAS A STABLE MOOD AND FULL RANGE AFFECT.
[2017-02-23 07:35] VITALS: BP 114/71
--- NOTE | 2017-02-23 10:14 | OP PSYCH INCIDENTAL NOTE ---
OPS Incidental Note Details: Faxed transfer to [facility].
[2017-02-23 12:08] VITALS: BP 120/71
--- NOTE | 2017-02-23 13:21 | NUR ---
PATIENT CALM AND COOPERATIVE WITH STAFF AND UNIT RULES. NORMAL MOOD WITH BRIGHT AFFECT AND FULL RANGE. NORMAL APETITE. INTERACTS WELL WITH PEERS AND STAFF, PRESENT IN GROUP AND MILEU. NO REPORTS OF SI.
--- NOTE | 2017-02-23 13:44 | SOCIAL WORKER PROG NOTE PSYCH ---
Social Work Progress Note Progress Note 02/23/2017 Met with patient at chairside in the conference room. Patient is tearful as two people that he grew close with on the inpatient unit were discharged today. Patient reports that his father returned to the unit at about 7pm last evening with his mother and they were able to talk things out about him being upset about discharge not being before tuesday. Patient is in agreement with the discharge plan and now reporting that he feels plan for discharge home on Tuesday is a good plan. Patient scheduled for dc Tuesday to an IOP intake appointment. Emotional support provided and patient is receptive to the support.
--- NOTE | 2017-02-23 14:44 | SOCIAL WORKER PROG NOTE PSYCH ---
Social Work Progress Note Progress Note 02/23/2017 2:40 pm Reviewed with patient scheduled appointments for discharge on Tuesday. Mike has an intake appointment for [facility] Tuesday at 9:30 am. He also has a scheduled appointment with [facility] at [facility] on 02/28/17 at 11:00 am. Patient is appreciative of this information and stated that he would share this information with his parents.
[2017-02-23 16:25] VITALS: BP 121/75
--- NOTE | 2017-02-23 17:43 | CP SOUTH PROGRESS NOTE PSYCH ---
Psych (Inpt) Progress Note Progress Note Include the following elements, when applicable: Involvement in the active treatment of the patient with behavioral observations of the patient and the patient's response to the treatment. Review of the ongoing treatment process in the context of the treatment plan. Indication of how multi-disciplinary staff members are carrying out the treatment plan. Plans for future interventions and recommendations for revision of the treatment plan. Liaison with other physicians/providers. Progress Note: PSYCHIATRIST NOTE, 02/23/2017: I discussed this patient's progress to date, current mental status, treatment and discharge planning with staff team today in the daily morning ITTM and also met with him again myself in individual session. Patient reported good sleep again last night and is happy with this change. atient continues to be positive with regard to treatment here on [facility] and aftercare in [facility]. We discussed yesterday's family meeting and patient's father' s emphatic behavior in particular; patient said he was not really surprized or upset by what father said about his "disability" because he has said it all before and he knows "father loves me and is concerned about me as a father," but at the same time patient feels confident he is on the right track, receiving the right treatment and referrals for now and is free to pursue if father wishes any additional evaluations or work-ups in future; I did recommend that the family make another appointment with neurologist, Dr. Mark Burgess, who had seen patient previously on an outpatient basis.
[2017-02-23 19:47] VITALS: BP 125/71
--- NOTE | 2017-02-24 07:11 | NUR ---
CHILD-LIKE, IDENTIFYING WITH STAFF. POOR BOUNDARIES. PT'S PARENTS VISITED. HE WILL DC TUESDAY.
[2017-02-24 07:36] VITALS: BP 120/78
--- NOTE | 2017-02-24 09:03 | SOCIAL WORKER PROG NOTE PSYCH ---
Social Work Progress Note Progress Note Met with Mike this morning. He appeared positive and in good spirits. Talked about going to his Dad's house and staying there starting tomorrow through 03/08 when he moves into the [facility] again. He can't say enough about his experience here and helping others. Talked about his goal of going back to school to be in some kind of helping profession. He would like his rifle case repairer at [facility] to help him with that. He is looking forward to going to [facility]. Talked about staying away from negative influences and possibly changing his phone number. He is tired of negative people getting in the way of his goals. He has a strong belief in God. Talked about returning to catholic as well. He stated he feels he needs to prove to his parents that he can do this and that he can accomplish things. He feels that coming here was an accomplishment for him. Discharge planned for tomorrow at 9:30am.
--- NOTE | 2017-02-24 09:50 | NUR ---
PT IS A/OX3, VERY ACTIVE IN COMMUNITY INTERACTING WITH PEERS AND STAFF, STARTS CONVERSATION WITH PEERS, HAS TO BE REDIRECTED AWAY FROM NURSES STATION AT TIMES, CALM AND COOPERATIVE, MOOD APPEARS TO BE BRIGHT WITH FULL RANGE AFFECT. DENIES SI/HI/TUBBS AT THIS TIME. COMPLIANT WITH MEDICATIONS AND RULES. HAS POSITIVE OUTLOOK FOR DISCHARGE TOMMORROW AND IS FUTURE ORIENTED.
[2017-02-24 12:43] VITALS: BP 121/70
[2017-02-24 15:40] VITALS: BP 110/63
--- NOTE | 2017-02-24 19:08 | CP SOUTH PROGRESS NOTE PSYCH ---
Psych (Inpt) Progress Note Progress Note Include the following elements, when applicable: Involvement in the active treatment of the patient with behavioral observations of the patient and the patient's response to the treatment. Review of the ongoing treatment process in the context of the treatment plan. Indication of how multi-disciplinary staff members are carrying out the treatment plan. Plans for future interventions and recommendations for revision of the treatment plan. Liaison with other physicians/providers. Progress Note: PSYCHIATRIST NOTE, 02/24/2017: I discussed this patient's interval progress to date, current mental status , treatment and discharge planning with staff team today in the daily morning ITTM and also met with him again myself in individual session. Patient continues to be active on the unit, in groups and on the milieu; to patients with whom he had grown close were discharged, and this had a somewhat unexpectedly profound effect upon him; he is saddened but not suicidal. Patient is tolerating upward titration of Depakote well and will have a valproic acid level drawn tomorrow morning, 02/25/2017, prior to planned discharge to intake at [facility] (at 9:30am). He continues to try to be future-oriented and positive , is helpful to other lower functioning patients, very comfortable with unit and staff. Transition to [facility] will hopefully be smooth. Patient will be staying with his father for about a week following discharge and then plans to go to stay at the [facility].
[2017-02-24] MEDS ORDERED: DIVALPROEX SOD500 M2 PO (19:33)
[2017-02-24] MEDS ORDERED: TRAZODONE HCL100 M1 PO (19:33)
[2017-02-24 20:09] VITALS: BP 133/68
--- NOTE | 2017-02-24 21:45 | NUR ---
PT BRIGHT AND SOCIAL. CALM AND COOPERATIVE. NO SOMATIC C/O. ACTIVE IN UNIT GROUPS AND ACTIVITIES. COMPLIANT WITH MEDS AND TREATMENT PLAN. LOOKING FORWARD TO DISCHARGE TOMORROW.
--- NOTE | 2017-02-25 07:39 | NUR ---
PT CHILD-LIKE, IDENTIFYING WITH STAFF. POOR BOUNDARIES. PT'S PARENTS VISITED HE WILL DC EARLY TODAY.
[2017-02-25 07:53] VITALS: BP 119/65
--- NOTE | 2017-02-25 08:43 | SOCIAL WORKER PROG NOTE PSYCH ---
Social Work Progress Note Progress Note Mike came and said goodbye this morning and thanked me for the help. Wished him well. Encouraged him to keep pursuing his goals. Showed him where to go for IOP intake. Appt. for 9:30am this morning.
--- NOTE | 2017-02-25 10:16 | CP SOUTH PROGRESS NOTE PSYCH ---
Psych (Inpt) Progress Note Progress Note Include the following elements, when applicable: Involvement in the active treatment of the patient with behavioral observations of the patient and the patient's response to the treatment. Review of the ongoing treatment process in the context of the treatment plan. Indication of how multi-disciplinary staff members are carrying out the treatment plan. Plans for future interventions and recommendations for revision of the treatment plan. Liaison with other physicians/providers. Progress Note: PSYCHIATRIST NOTE (DISCHARGE), 02/25/2017: I discussed this patient's progress to date, current mental status, treatment and discharge plan with staff team today in the daily morning ITTM and also met with him again myself in individual session prior to discharging him seamlessly to intake at the [facility] for 9:30am this morning. Patient was still very much looking forward to attending [facility], as he felt he had learned much here on [facility]. He is bright in affect, cheerful/smiling, euthymic, showing no evidence of current suicidal or homicial ideation, plans, intent or impulses and well aware of his own safety plan should he every in future come to believe himself at acute risk of self-harm or harming others. Patient is future- oriented, still focused on pursuing a career "helping people" in some way, either in a clinical setting or in any other work he takes up. He has no reservations about staying with his father who lives "just down the street," until his room at the [facility] becomes available on 03/08/2017, and thinks that ultimately it is best for him to have his own place and "space" going forward while maintaining good relationships with all of his family members. Serum valproic acid level on morning of discharge was up to low therapeutic range at 58.3 and well tolerated at current dose of 1,000mg/day; I would recommend repeating level in 1-2 weeks before considering any upward dose titration. (for all medications prescribed at time of discharge, doses, scheduling, amounts prescribed, indications, see the "Discharge Medications" section of the discharge summary for this admission in the electronic medical record)
--- NOTE | 2017-02-25 10:17 | DISCHARGE SUMMARY REPORT-PSYCH ---
Visit Information Visit Dates/Diagnosis' Admission Date: 02/18/17 Discharge Date: 02/25/17 Psy Discharge Primary Diag: Schizoaffective Disorder, Mixed; MRE Depressed hx of psychotic features (including command type auditory hallucinations) Hospital Course Course Allergies: Coded Allergies: No Known Drug Allergies (Intermediate, NONE 02/17/17) Discharge HBIPS - Tobacco Use Treatment Offered - EtOH/Drug Use D/O Treatment Offered Metabolic Screening - Screen if on a Neuroleptic Medication - Metabolic screening should include: - Blood Pressure, BMI, Glucose or Hgb A1c, & a - Lipid profile from within the past 365 days. Discharge Instructions General Discharge Information Discharge Medications: I called into [facility], [facility] [place], [place] on day of discharge, : Depakote ER, 500mg: ii tabs every evening (1,000mg/day); #28 with no refill ( mood stabilization) Risperdal, 1mg: i tab nightly at HS (1mg/night); #14 with no refill (clarify thinking, reduce racing thoughts) trazodone, 100mg: i tab nightly at HS (100mg/night); #14 with no refill ( sleep induction) We also once again offered patient smoking cessation medication but he refused as he had throughout admission; however, we also gave him an appointment card for the next [place] [facility] scheduled for 03/02/2017 at 4pm, facilitated by Hillary Amin LCSW.
--- NOTE | 2017-02-25 10:18 | NUR ---
Patient is being discharge today and will be attending [facility] Intensive Outpatient program. A&O X 3 appears stable not in acute distress, demonstrate good insight of her mental/psychiatric illness, verbalizes some positive coping mechanism that will help him stay focus and free from substance use/abuse. patient acknowledges the receipt of the discharge instruction and emergency phone number and to use them when feeling overwhelmed or out of control. Patgient denies thought of self-harm and to someone else.
--- NOTE | 2017-02-25 21:58 | DISCHARGE SUMMARY REPORT-PSYCH ---
Visit Information Visit Dates/Diagnosis' Admission Date: 02/18/17 Discharge Date: 02/25/17 Reason for Admission: " Psy Discharge Primary Diag: Schizoaffective Disorder, Mixed; MRE Depressed hx of psychotic features (including command type auditory hallucinations) Hospital Course Course Allergies: Coded Allergies: No Known Drug Allergies (Intermediate, NONE 02/17/17) Discharge HBIPS - Tobacco Use Treatment Offered - EtOH/Drug Use D/O Treatment Offered Metabolic Screening - Screen if on a Neuroleptic Medication - Metabolic screening should include: - Blood Pressure, BMI, Glucose or Hgb A1c, & a - Lipid profile from within the past 365 days.
== END 2017-02-25 09:35 | DRG 754 ==
LOC: ERH → ERHI 02-18 11:29 → CP SOUTH 02-18 11:29 → ENTRNSPT 02-18 14:12 → EDTRNSPTSTS 02-18 14:36 → EDTRNSPT 02-18 14:36 → CP SOUTH 02-18 14:40 → CMPTRNSPT 02-18 14:58 → ENRESERV 02-18 16:00 → CP SOUTH 02-21 08:26
PROVIDERS: Physician Assistant Medical; ADMIT Psychiatry & Neurology Psychiatry
DX: F32.9 Major depressive disorder, single episode, unspecified (principal); F12.90 Cannabis use, unspecified, uncomplicated
CPT/HCPCS: 36415; 80307; 90834; G0463; G0480

== ENCOUNTER 2018-03-21 11:13 | Emergency (ER) | payer OTHER ==
[~2018-03-21] VITALS: Ht 165.1 cm; Wt 63.5 kg
[~2018-03-21 11:13] MED LIST: DIVALPROEX SOD500 M2 PO; GUANFACINE HCL E1 MG; RISPERIDONE1 M1; RISPERIDONE1 M1 PO; TRAZODONE HCL100 M1 PO
[2018-03-21 11:23] VITALS: BP 121/74
--- NOTE | 2018-03-21 12:06 | ED GI/GU/ABDOMINAL COMPLAINT ---
History of Present Illness General Chief Complaint: General Adult Stated Complaint: PT STATES "MY X HAS HERPES I WANT TO BE CHECKED" Source: patient Exam Limitations: no limitations Vital Signs & Intake/Output Vital Signs & Intake/Output Vital Signs Date Time Temp Pulse Resp B/P B/P Pulse O2 O2 Flow FiO2 Mean Ox Delivery Rate 03/21 1123 97.4 102 20 121/74 98 Room Air Allergies Coded Allergies: No Known Drug Allergies (Intermediate, NONE 02/17/17) Reconcile Medications Divalproex Sodium 500 MG TABLET.DR 1,000 MG PO 1999 mood stabilization Risperidone 1 MG TABLET Mood control and insomnia (Reported) Trazodone HCl 100 MG TABLET 100 MG PO AT BEDTIME sleep induction Triage Note: PT TO ED REQUESTING CHECK FOR GENITAL HERPES. PT DENIES S/S. Triage Nurses Notes Reviewed? yes Onset: Abrupt Duration: unknown duration Timing: recent history HPI: 27-year-old male comes into the emergency room because his ex-girlfriend tested positive for herpes and he wanted to be tested. He has no symptoms. He denies any lesions. Denies any sores. Denies any discharge or urinary symptoms. Denies any prior history of herpes. Comes in for further evaluation. (Gabriel Adkins) Past History Travel History Traveled to [place] past 21 day No Medical History Any Pertinent Medical History? see below for history Neurological: History of TBI X 2 as a child EENT: NONE Cardiovascular: NONE Respiratory: NONE Gastrointestinal: NONE Hepatic: NONE Renal: NONE Musculoskeletal: NONE Psychiatric: anxiety, depression, insomnia, substance abuse Endocrine: NONE Blood Disorders: NONE Cancer(s): NONE History of MRSA: No History of VRE: No History of CDIFF: No Surgical History Surgical History: non-contributory Psychosocial History Who do you live with Cousin What is your primary language Portuguese Tobacco Use: Current Daily Use Daily Tobacco Use Amount/Type: => 5 Cigarettes daily ETOH Use: denies use Illicit Drug Use: marijuana Family History Hx Contributory? No (Gabriel Adkins) Review of Systems Review of Systems Constitutional: Reports: no symptoms. EENTM: Reports: no symptoms. Respiratory: Reports: no symptoms. Cardiovascular: Reports: no symptoms. GI: Reports: no symptoms. Genitourinary: Reports: see HPI. Musculoskeletal: Reports: no symptoms. Skin: Reports: no symptoms. Neurological/Psychological: Reports: no symptoms. Hematologic/Endocrine: Reports: no symptoms. Immunologic/Allergic: Reports: no symptoms. All Other Systems: Reviewed and Negative (Gabriel Adkins) Physical Exam Physical Exam General Appearance: well developed/nourished, no apparent distress, alert, awake Head: atraumatic Eyes: Bilateral: normal appearance. Ears, Nose, Throat, Mouth: hearing grossly normal, moist mucous membrane Neck: normal inspection Respiratory: no respiratory distress Gastrointestinal: soft Male Genitals: normal genitalia, normal inspection, no discharge, no lesions, Back: normal inspection Extremities: normal range of motion Neurologic/Psych: awake, alert, oriented x 3 Core Measures ACS in differential dx? No Sepsis Present: No Sepsis Focused Exam Completed? No (Gabriel Adkins) Progress Differential Diagnosis: STD, herpes, gonorrhea/ chlamydia, genital warts, Plan of Care: 03/21/2018 12:24:20 PM Patient clinically looks well. Patient is no apparent distress. Nontoxic- appearing. Follow-up with PCP. I told the patient that he needs follow-up with his PCP or outpatient follow-up for full STD panel. Offered urine gonorrhea and chlamydia and he declined. Initial ED EKG: none (Gabriel Adkins) Departure Departure Disposition: HOME OR SELF CARE Condition: Stable Clinical Impression Primary Impression: Herpes exposure Referrals: Patient Has No Primary Care Dr (PCP/Family) Additional Instructions: Follow-up with your primary care doctor urgent care center for full STD panel. No sexual intercourse until tested. Return if any other concerns. Please go over all results of today's visit with your primary care doctor. Contact your primary care doctor to let them know you were here in the emergency room. There may be nonspecific findings which may not be related to your visit today here in the emergency room but may require further evaluation and chronic monitoring by your primary care doctor. If you had a laceration today the chance of foreign body always remains. You should follow-up with your primary care doctor for recheck in 3-5 days for a wound check. If you had an x-ray done there is a chance that a fracture could have been missed on initial read and you should follow-up with your primary care doctor for repeat x-rays if symptoms persist. If your blood pressure was elevated here in the emergency room please have rechecked by quang primary care doctor within the next 48. If you were prescribed a narcotic here in the emergency room or any type of controlled substances you're not allowed to drive while taking this medication or operate any type of heavy machinery. Narcotics can make you feel lightheaded dizziness nausea and can cause constipation. You may need to pick out hand a stool softener. Thank you for choosing [facility] emergency room. Please return to the emergency room immediately if you have any other concerns worsening of symptoms. Departure Forms: Customer Survey General Discharge Information (Gabriel Adkins) PA/TIN POURER Co-Sign Statement Statement: ED Attending supervision documentation- [] I saw and evaluated the patient. I have also reviewed all the pertinent lab results and diagnostic results. I agree with the findings and the plan of care as documented in the PA's/TIN POURER's documentation. [X] I have reviewed the ED Record and agree with the PA's/TIN POURER's documentation. [] Additions or exceptions (if any) to the PAs/TIN POURER's note and plan are summarized below: [] (Ivan JACQUES,Rk Milian)
== END 2018-03-21 12:16 ==
LOC: ERH 11:13
DX: Z20.2 Contact with and (suspected) exposure to infections with a predominantly sexual mode of transmission (principal)
CPT/HCPCS: 99282